=== PATIENT | female | born 1965 | race African-American/Black ===

== ENCOUNTER → 2017-01-19 | Outpatient (CLI) | payer OTHER ==
--- NOTE | ~2017-01-19 | CT4 ---
[facility] A Service of [facility] / [facility] RADIOLOGY TEXT RESULTS PATIENT: SHELLIE BRADY LOCATION: [facility] : 63 UNIT #: [id number] AGE: [address]: TOYIN POON APRN SEX: F ORDER DR: [id number] [place], [place] [address] [id number] O MR#: [id number] Acc #: [id number] NAME: SHELLIE BRADY : 1965 SEX: F STUDY DATE/TIME: 01/19/2017 8:19 UNIT: [facility] ROOM: STUDY DESCRIPTION: CT Abd and Pelv Wo Cont Attending Physician: Toyin Poon Aprn Referring Physician: Toyin Poon Aprn Ordering Physician: Toyin Poon Aprn Primary Care Physician: Toyin Poon Aprn MEDICAL IMAGING REPORT This report is preliminary unless electronic signature is present EXAM CT of the abdomen and pelvis without contrast. INDICATION 51-year-old female with a history of left-sided abdominal pain since last Sunday. TECHNIQUE CT of the abdomen and pelvis was performed without contrast. Coronal and sagittal reformatted images were obtained. This CT exam was performed with one or more of the following radiation dose reduction techniques: automatic exposure control, adjustment of mA and/or kV according to patient size, and iterative reconstruction. COMPARISON STUDIES No comparisons. FINDINGS Lung bases clear. Multiple hepatic cysts. Gallbladder and spleen unremarkable. Kidneys unremarkable. No renal stone. Adrenal glands unremarkable. Pancreas is unremarkable. PELVIS: The colon is unremarkable. Normal appendix. No free fluid. The bone windows demonstrate degenerative changes of the lumbar spine. IMPRESSION No evidence of renal or ureteral stone. Dictated by... Silas Davis M.D. [facility] A Service [facility] RADIOLOGY TEXT RESULTS PATIENT: SHELLIE BRADY LOCATION: [facility]AT : 63 UNIT #: [id number] AGE: [address]: TOYIN POON APRN SEX: F ORDER DR: THIS IS AN ELECTRONICALLY VERIFIED REPORT Sials Davis M.D. at 01/19/2017 5:01 PM Suzi TD: 01/19/2017 10:06 JOB #: [id number] MEDICAL IMAGING REPORT Page 1 of 1 COPY
== END | disposition home or self-care (01) ==
LOC: CCAT 08:00
DX: R31.29 Other microscopic hematuria (principal); R10.9 Unspecified abdominal pain
CPT/HCPCS: 74176